=== PATIENT | male | born 1990 | race Two or more races ===

== ENCOUNTER 2023-12-29 20:08 | Emergency (ER) | payer OTHER ==
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
[2023-12-30] MEDS: NICOTINE 21MG/24HR PATCH TRANSDERM STA (01:27)
[2023-12-30 06:10] VITALS: TEMP 98.3
[2023-12-30 12:43] VITALS: BP 135/89; PULSE 75; RESP 18
[2023-12-30 18:12] LABS: Urine Alcohol Negative (Negative); Urine Barbiturate Negative (Negative); Urine Cocaine Negative (Negative); Urine Methadone Negative (Negative); Urine Opiates Negative (Negative); Urine Phencyclidine Negative (Negative)
== END 2023-12-30 12:43 | disposition home or self-care (01) ==
LOC: EC 20:08
DX: Z63.0 Problems in relationship with spouse or partner (principal); F17.200 Nicotine dependence, unspecified, uncomplicated; F12.90 Cannabis use, unspecified, uncomplicated
CPT/HCPCS: 82075; 80306; 99285; S4990